=== PATIENT | female | born 1965 | race Caucasian/White ===

== ENCOUNTER 2021-08-24 08:58 | Inpatient (IN) ==
[2021-08-24 10:05] LABS: Hematocrit 37 % (35-47); Hemoglobin 12.6 g/dL (12.0-16.0); Mean Corpuscular HGB Conc 34 g/dL (31-36); Mean Corpuscular Hemoglobin 34 pg (27-31); Mean Corpuscular Volume 101 fL (80-97); Mean Platelet Volume 8.9 fL (7.4-10.4); Platelet Count 252 10^3/uL (150-450); Red Blood Count 3.69 10^6 /uL (3.70-4.87); Red Cell Distribution Width 13 % (10-15); White Blood Count 19.9 10^3/uL (3.5-10.8)
[2021-08-24 10:15] LABS: ABS Lymphocytes 0.3 10^3/ul (1.0-4.8); ABS Monocytes 0.1 10^3/ul (0-0.8); ABS Neutrophils 19.5 10^3/ul (1.5-7.7); Lymphocyte % 1.5 %
[2021-08-24 10:17] LABS: INR 2.07 (0.86-1.15)
[2021-08-24 10:25] LABS: ALT 17 U/L (7-52); AST 57 U/L (13-39); Albumin 3.2 g/dL (3.2-5.2); Albumin/Globulin Ratio 0.8 (1-3); Alkaline Phosphatase 97 U/L (35-149); Anion Gap 12 mmol/L (2-11); Blood Urea Nitrogen 30 mg/dL (6-24); CO2 Carbon Dioxide 20 mmol/L (22-32); Calcium 9.8 mg/dL (8.6-10.3); Chloride 96 mmol/L (101-111); Glucose 135 mg/dL (70-100); Sodium 128 mmol/L (135-145); Total Protein 7.2 g/dL (6.4-8.9); eGFR CKD-EPI 96.9 (>60)
[2021-08-24] MEDS ORDERED: Levofloxacin 500 MG IVPREMIX 500 MG/100 ML BAG IV ONE (10:54)
[2021-08-24 10:55] LABS: Macrocytosis 1+
[2021-08-24] MEDS ORDERED: Lactated Ringers 1000 ml BAG 1,000 ML IV ONE (11:19)
[2021-08-24 12:42] LABS: Rapid COVID-19 Molecular Undetected (Undetected)
[2021-08-24] MEDS ORDERED: Albuterol HFA INHALER 8 gm MDI INH PRN (17:31)
[2021-08-24] MEDS ORDERED: Enoxaparin 40 MG/0.4 ML SYR SUBCUT SCH (18:00)
[2021-08-24] MEDS ORDERED: Ondansetron ODT 4 mg TAB 4 MG TAB PO PRN (18:03)
[2021-08-24] MEDS ORDERED: Vancomycin 1,000 MG in NS 0.9% 250 ml 250 ML IVPB ONE (18:24)
[2021-08-24] MEDS ORDERED: Enoxaparin 80 MG/0.8 ML SYR SUBCUT ONE (18:29)
[2021-08-24] MEDS ORDERED: NS 0.9% 1000 ml BAG 1,000 ML IV SCH (19:00)
[2021-08-24] MEDS ORDERED: Warfarin per PHARMACY **NOTE FOLLOW UP SCH (19:00)
[2021-08-24] MEDS ORDERED: Vancomycin per Pharmacy 1 EA NOTE FOLLOW UP SCH (19:00)
[2021-08-24 20:00] LABS: INR 1.92 (0.86-1.15)
[2021-08-25 05:27] LABS: Hematocrit 32 % (35-47); Hemoglobin 10.9 g/dL (12.0-16.0)
[2021-08-25 05:37] LABS: INR 2.55 (0.86-1.15)
[2021-08-25 05:43] LABS: Anion Gap 7 mmol/L (2-11); Blood Urea Nitrogen 19 mg/dL (6-24); CO2 Carbon Dioxide 24 mmol/L (22-32); Calcium 8.6 mg/dL (8.6-10.3); Chloride 99 mmol/L (101-111); Glucose 96 mg/dL (70-100); Magnesium 2.1 mg/dL (1.9-2.7); Potassium 3.7 mmol/L (3.5-5.0); Sodium 130 mmol/L (135-145); eGFR CKD-EPI 112.7 (>60)
[2021-08-25 06:18] LABS: ABS Lymphocytes 0.6 10^3/ul (1.0-4.8); ABS Monocytes 0.5 10^3/ul (0-0.8); ABS Neutrophils 13.6 10^3/ul (1.5-7.7); Eosinophil % 0.2 %; Hematocrit 31 % (35-47); Hemoglobin 10.6 g/dL (12.0-16.0); Lymphocyte % 4.3 %; Mean Corpuscular HGB Conc 34 g/dL (31-36); Mean Corpuscular Hemoglobin 34 pg (27-31); Mean Corpuscular Volume 100 fL (80-97); Platelet Count 202 10^3/uL (150-450); Red Blood Count 3.15 10^6 /uL (3.70-4.87); Red Cell Distribution Width 14 % (10-15); White Blood Count 14.7 10^3/uL (3.5-10.8)
[2021-08-25 06:27] LABS: TSH Ultra Thyroid Stim Horm 0.06 mcIU/mL (0.34-5.60)
[2021-08-25 06:38] LABS: Folate 3.06 ng/mL (5.90-24.80)
[2021-08-25 06:39] LABS: Vitamin B12 > 1450 pg/mL (180-914)
[2021-08-25] MEDS: Linezolid 600 MG/ 300 ML IVPB SCH ×2 (08:15→20:11)
[2021-08-25] MEDS: Nicotine PATCH 14 MG/24 HR PATCH TRANSDERM SCH (08:18)
[2021-08-25] MEDS: Cefepime 2 GM in Dextrose 2 GM/50 ML BAG IV SCH ×2 (12:15→20:11)
[2021-08-25] MEDS ORDERED: Levofloxacin 750 MG IVPREMIX 750 MG/150 ML BAG IVPB SCH (13:00)
[2021-08-25] MEDS ORDERED: Perflutren Lipid Microsphere 3 ML VIAL ONE (13:25)
[2021-08-25] MEDS: Warfarin DAILY REMINDER **NOTE FOLLOW UP SCH (16:30)
[2021-08-25 19:28] LABS: Total T3 62 ng/dL (87-178)
[2021-08-26] MEDS: Cefepime 2 GM in Dextrose 2 GM/50 ML BAG IV SCH ×3 (03:47→20:42)
[2021-08-26 06:46] LABS: Hematocrit 34 % (35-47); Hemoglobin 11.5 g/dL (12.0-16.0); Mean Corpuscular HGB Conc 34 g/dL (31-36); Mean Corpuscular Hemoglobin 34 pg (27-31); Mean Corpuscular Volume 100 fL (80-97); Mean Platelet Volume 8.4 fL (7.4-10.4); Platelet Count 235 10^3/uL (150-450); Red Blood Count 3.37 10^6 /uL (3.70-4.87); Red Cell Distribution Width 14 % (10-15); White Blood Count 11.1 10^3/uL (3.5-10.8)
[2021-08-26 06:57] LABS: INR 3.72 (0.86-1.15)
[2021-08-26 07:12] LABS: Calcium 9.2 mg/dL (8.6-10.3); Magnesium 2.1 mg/dL (1.9-2.7); Potassium 3.8 mmol/L (3.5-5.0); eGFR CKD-EPI 111.4 (>60)
[2021-08-26] MEDS ORDERED: Warfarin per PHARMACY **NOTE FOLLOW UP SCH ×2 (07:36→08:30)
[2021-08-26] MEDS: Linezolid 600 MG/ 300 ML IVPB SCH (08:59)
[2021-08-26] MEDS: Nicotine PATCH 14 MG/24 HR PATCH TRANSDERM SCH (09:00)
[2021-08-26] MEDS ORDERED: Warfarin - No Order Today **NOTE FOLLOW UP ONE (14:00)
[2021-08-26] MEDS: Warfarin DAILY REMINDER **NOTE FOLLOW UP SCH (18:12)
[2021-08-27] MEDS: Cefepime 2 GM in Dextrose 2 GM/50 ML BAG IV SCH ×3 (03:16→20:18)
[2021-08-27 07:44] LABS: Hematocrit 32 % (35-47); Hemoglobin 10.8 g/dL (12.0-16.0); Mean Corpuscular HGB Conc 34 g/dL (31-36); Mean Corpuscular Hemoglobin 34 pg (27-31); Mean Corpuscular Volume 101 fL (80-97); Mean Platelet Volume 8.6 fL (7.4-10.4); Platelet Count 221 10^3/uL (150-450); Red Blood Count 3.19 10^6 /uL (3.70-4.87); Red Cell Distribution Width 14 % (10-15); White Blood Count 8.3 10^3/uL (3.5-10.8)
[2021-08-27 07:53] LABS: INR 4.59 (0.86-1.15)
[2021-08-27 08:01] LABS: Calcium 9.4 mg/dL (8.6-10.3); eGFR CKD-EPI 109.7 (>60)
[2021-08-27 08:36] LABS: Thyroid Peroxidase Antibodies 0.29 IU/mL (<9)
[2021-08-27] MEDS: Nicotine PATCH 14 MG/24 HR PATCH TRANSDERM SCH (09:22)
[2021-08-27] MEDS ORDERED: Warfarin - No Order Today **NOTE FOLLOW UP ONE (17:00)
[2021-08-27] MEDS: Warfarin DAILY REMINDER **NOTE FOLLOW UP SCH (17:35)
[2021-08-28] MEDS: Cefepime 2 GM in Dextrose 2 GM/50 ML BAG IV SCH ×2 (04:37→12:23)
[2021-08-28 06:39] LABS: INR 4.78 (0.86-1.15)
[2021-08-28 06:40] LABS: Calcium 8.8 mg/dL (8.6-10.3); Potassium 3.8 mmol/L (3.5-5.0); eGFR CKD-EPI 117.6 (>60)
[2021-08-28] MEDS ORDERED: Potassium Chlor 20 meq TAB.ER PO ONE (07:05)
[2021-08-28] MEDS: Nicotine PATCH 14 MG/24 HR PATCH TRANSDERM SCH (08:26)
[2021-08-28 10:25] VITALS: BP 152/57
[2021-08-28] MEDS ORDERED: Warfarin - No Order Today **NOTE FOLLOW UP ONE (17:00)
[2021-08-31 16:39] LABS: Thyroxine Binding Globulin 14 mcg/mL (11-27)
[2021-08-31 18:53] LABS: Thyrotropin Receptor Antibody <1.10 IU/L
== END 2021-08-28 13:36 | disposition home or self-care (01) | DRG 871 ==
LOC: ED 08:58 → SUATTDRO 17:21 → EDHOLD 17:21 → MEDTELE 19:59
PROVIDERS: ADMIT Internal Medicine; ATTEND Hospitalist

== ENCOUNTER 2024-03-17 09:55 | Inpatient (IN) ==
[2024-03-17 11:39] LABS: ABS Lymphocytes 0.5 10^3/uL (1.0-4.8); ABS Monocytes 0.7 10^3/uL (0.0-0.9); ABS Neutrophils 7.5 10^3/uL (1.5-7.6); Eosinophil % 0.2 %; Hematocrit 28.1 % (35-45); Hemoglobin 9.8 g/dL (11.5-14.3); Lymphocyte % 5.5 %; Mean Corpuscular Hemoglobin 33.2 pg (27-33); Mean Platelet Volume 8.5 fL (7.5-11.2); Platelet Count 166 10^3/uL (150-450); Red Blood Count 2.96 10^6/uL (3.63-4.92); Red Cell Distribution Width 14.7 % (12-17); White Blood Count 8.6 10^3/uL (3.8-11.8)
[2024-03-17 11:45] LABS: INR 2.02 (0.83-1.13)
[2024-03-17 12:05] LABS: Albumin 3.3 g/dL (3.2-5.2); Albumin/Globulin Ratio 1.2 (1-3); C Reactive Protein 332.33 mg/L (<8.01); Calcium 8.6 mg/dL (8.6-10.3); Creatinine, Serum 0.68 mg/dL (0.51-0.95); Globulin 2.7 g/dL (2-4); Total Bilirubin 1.6 mg/dL (0.2-1.0); eGFR CKD-EPI 99.6 (>60)
[2024-03-17] MEDS: Cefepime 2 GM in Dextrose 2 GM/50 ML BAG IV ONE (13:07)
[2024-03-17] MEDS: Azithromycin 500 mg/250 ml NS 500 MG/250 ML BAG IVPB ONE (13:48)
[2024-03-17 14:08] LABS: Urine Appearance Turbid; Urine Bilirubin 1+ (Negative); Urine Blood 1+ (Negative); Urine Glucose Negative (Negative); Urine Ketones Negative (Negative); Urine Nitrite Negative (Negative); Urine Protein 1+ (>=30 mg/dL) (Negative); Urine Specific Gravity 1.032 (1.002-1.030); Urine Urobilinogen 2+ (Negative)
[2024-03-17 14:28] LABS: Urine Bacteria Absent /HPF (Absent); Urine Red Blood Cell 2+(6-10/hpf) /HPF (0-Trace); Urine Squamous Epithelial Cell Present /HPF (Absent); Urine White Blood Cell Trace(0-5/hpf) /HPF (0-Trace)
[2024-03-17 14:29] LABS: Urine Color Amber
[2024-03-17] MEDS ORDERED: Warfarin per PHARMACY **NOTE FOLLOW UP SCH (15:00)
[2024-03-17] MEDS: Aspirin EC 81 mg TAB.EC (enteric coated) PO SCH (15:01)
[2024-03-17] MEDS: Albuterol/Ipratropium NEB.SOL (2.5/0.5 MG) 3 ML NEB.SOLN INH PRN (20:18)
[2024-03-17] MEDS ORDERED: Cefepime 2 GM in Dextrose 2 GM/50 ML BAG IV SCH (21:00)
[2024-03-17] MEDS: Cefepime 2 GM in Dextrose 2 GM/50 ML BAG IV SCH (21:54)
[2024-03-18 06:41] LABS: Hemoglobin 9.5 g/dL (11.5-14.3); Mean Corpuscular Hemoglobin 33.4 pg (27-33); Mean Corpuscular Hgb Conc 35.2 g/dL (31-36); Mean Corpuscular Volume 94.8 fL (80-97); Mean Platelet Volume 8.3 fL (7.5-11.2); Platelet Count 181 10^3/uL (150-450); Red Blood Count 2.85 10^6/uL (3.63-4.92); Red Cell Distribution Width 14.9 % (12-17)
[2024-03-18 06:55] LABS: INR 2.21 (0.83-1.13)
[2024-03-18] MEDS: CMC:FLUTICAS/UMECLI/VILANT 100-62.5-25 MDI (NF) INH SCH (07:22)
[2024-03-18] MEDS: FENOFIBRATE MICRONIZED 67 MG PO SCH (07:50)
[2024-03-18] MEDS: MAGNESIUM 500 MG PO SCH (07:53)
[2024-03-18 09:30] LABS: Calcium 8.4 mg/dL (8.6-10.3); Creatinine, Serum 0.56 mg/dL (0.51-0.95); Potassium 4.1 mmol/L (3.5-5.0); eGFR CKD-EPI 104.4 (>60)
[2024-03-18] MEDS: Potassium Chlor 20 meq TAB.ER PO SCH (09:35)
[2024-03-18] MEDS ORDERED: Albuterol/Ipratropium NEB.SOL (2.5/0.5 MG) 3 ML NEB.SOLN INH PRN (10:23)
[2024-03-18] MEDS: Furosemide 20 mg/2 ml IV VIAL IV ONE (12:26)
[2024-03-18] MEDS: Albuterol/Ipratropium NEB.SOL (2.5/0.5 MG) 3 ML NEB.SOLN INH PRN (13:26)
[2024-03-18] MEDS: Azithromycin 500 mg/250 ml NS 500 MG/250 ML BAG IVPB SCH (13:36)
[2024-03-18] MEDS: Warfarin DAILY REMINDER **NOTE FOLLOW UP SCH (16:50)
[2024-03-19 07:03] LABS: ABS Eosinophils 0.1 10^3/uL (0.0-0.5); ABS Lymphocytes 0.6 10^3/uL (1.0-4.8); ABS Monocytes 0.8 10^3/uL (0.0-0.9); ABS Neutrophils 9.1 10^3/uL (1.5-7.6); Eosinophil % 1.2 %; Hematocrit 28.8 % (35-45); Hemoglobin 9.9 g/dL (11.5-14.3); Mean Corpuscular Hemoglobin 32.6 pg (27-33); Mean Corpuscular Hgb Conc 34.2 g/dL (31-36); Mean Corpuscular Volume 95.3 fL (80-97); Mean Platelet Volume 8.2 fL (7.5-11.2); Platelet Count 232 10^3/uL (150-450); Red Blood Count 3.02 10^6/uL (3.63-4.92); Red Cell Distribution Width 15.3 % (12-17); White Blood Count 10.7 10^3/uL (3.8-11.8)
[2024-03-19 07:06] LABS: INR 2.57 (0.83-1.13)
[2024-03-19 07:38] LABS: Calcium 8.9 mg/dL (8.6-10.3); Creatinine, Serum 0.56 mg/dL (0.51-0.95); Magnesium 1.7 mg/dL (1.9-2.7); Phosphorus 2.9 mg/dL (2.5-5.0); Potassium 3.6 mmol/L (3.5-5.0); eGFR CKD-EPI 104.4 (>60)
[2024-03-19] MEDS: Magnesium Sulfate 2 gm BAG 2 GM/50 ML BAG IVPB ONE (08:47)
[2024-03-19] MEDS: Sulfur Hexaflouride MICROSPHR 25 MG VIAL IV ONE (09:39)
[2024-03-19] MEDS ORDERED: Sulfur Hexaflouride MICROSPHR 25 MG VIAL ONE (09:43)
[2024-03-19] MEDS: Furosemide 40 mg/4 ml IV VIAL IV ONE (12:00)
[2024-03-19] MEDS: methylPREDNISolone SOD SUCC 40 mg/ml 1 ml VIAL IV ONE (12:00)
[2024-03-19] MEDS: cefTRIAXone 1 gm/50 mL D5W 1 GM/50 ML BAG IV SCH (12:01)
[2024-03-19] MEDS: Albuterol/Ipratropium NEB.SOL (2.5/0.5 MG) 3 ML NEB.SOLN INH SCH (13:38)
[2024-03-19] MEDS: Albuterol/Ipratropium NEB.SOL (2.5/0.5 MG) 3 ML NEB.SOLN INH PRN (23:49)
[2024-03-20 06:40] LABS: ABS Monocytes 0.8 10^3/uL (0.0-0.9); ABS Neutrophils 7.6 10^3/uL (1.5-7.6); ABS Nucleated RBC 0.01 10^3/ul; Eosinophil % 0.2 %; Hematocrit 26.2 % (35-45); Hemoglobin 8.9 g/dL (11.5-14.3); Lymphocyte % 10.6 %; Mean Corpuscular Hemoglobin 31.9 pg (27-33); Mean Corpuscular Hgb Conc 34.1 g/dL (31-36); Mean Corpuscular Volume 93.5 fL (80-97); Mean Platelet Volume 8.2 fL (7.5-11.2); Nucleated Red Blood Cells % 0.1 %/100WBC (0.0-0.8); Platelet Count 269 10^3/uL (150-450); Red Blood Count 2.81 10^6/uL (3.63-4.92); Red Cell Distribution Width 15.2 % (12-17); White Blood Count 9.5 10^3/uL (3.8-11.8)
[2024-03-20 06:46] LABS: INR 3.32 (0.83-1.13)
[2024-03-20 07:34] LABS: Calcium 8.8 mg/dL (8.6-10.3); Creatinine, Serum 0.48 mg/dL (0.51-0.95); Magnesium 2.1 mg/dL (1.9-2.7); Phosphorus 3.5 mg/dL (2.5-5.0); Potassium 4.2 mmol/L (3.5-5.0); eGFR CKD-EPI 108.4 (>60)
[2024-03-20] MEDS: methylPREDNISolone SOD SUCC 40 mg/ml 1 ml VIAL IV ONE (09:48)
[2024-03-20] MEDS: Furosemide 40 mg/4 ml IV VIAL IV ONE (13:06)
[2024-03-21 06:29] LABS: ABS Basophils 0.1 10^3/uL (0.0-0.1); ABS Eosinophils 0.1 10^3/uL (0.0-0.5); ABS Lymphocytes 1.9 10^3/uL (1.0-4.8); ABS Monocytes 0.9 10^3/uL (0.0-0.9); ABS Neutrophils 7.8 10^3/uL (1.5-7.6); Eosinophil % 1.2 %; Hematocrit 28.6 % (35-45); Hemoglobin 9.9 g/dL (11.5-14.3); INR 3.36 (0.83-1.13); Lymphocyte % 17.6 %; Mean Corpuscular Hemoglobin 32.4 pg (27-33); Mean Corpuscular Hgb Conc 34.4 g/dL (31-36); Mean Platelet Volume 7.9 fL (7.5-11.2); Platelet Count 301 10^3/uL (150-450); Red Blood Count 3.05 10^6/uL (3.63-4.92); White Blood Count 10.9 10^3/uL (3.8-11.8)
[2024-03-21 07:19] LABS: Creatinine, Serum 0.57 mg/dL (0.51-0.95); Magnesium 2.1 mg/dL (1.9-2.7); Phosphorus 2.9 mg/dL (2.5-5.0)
[2024-03-21] MEDS ORDERED: Benzocaine/Menthol LOZ PO PRN (13:25)
[2024-03-21 13:26] VITALS: BP 122/57
== END 2024-03-21 15:30 | disposition home or self-care (01) | DRG 193 ==
LOC: EDHOLD 09:55 → ED 09:55 → INTOOBSV 13:37 → SUATTDRO 13:37 → OBSVTOIN 13:37 → MED 16:51
PROVIDERS: ADMIT Student in an Organized Health Care Education/Training Program; ATTEND Hospitalist